=== PATIENT | female | born 1960 | race Native Hawaiian/Other Pacific Islander ===

== ENCOUNTER 2020-06-11 14:57 | Outpatient (CLI) | payer OTHER ==
[~2020-06-11 14:57] MED LIST: ALEN70TA19 PO; ALPR1TAB61 PO; HYDR-2748 PO; OXYCODONE30 MG PO; PERCOCET1 TA2 PO; SIMV20TA2 PO
[2020-06-11 15:36] LABS: PLATELET COUNT 346 K/uL (152-353)
[2020-06-11 15:37] LABS: POTASSIUM 3.4 mmol/L (3.6-5.2)
== END 2020-06-11 21:43 | disposition home or self-care (01) ==
LOC: LAB 14:57
PROVIDERS: ATTEND Nurse Practitioner Family
DX: Z00.00 Encounter for general adult medical examination without abnormal findings (principal); I10 Essential (primary) hypertension; R53.81 Other malaise; R53.83 Other fatigue; Z79.899 Other long term (current) drug therapy; E55.9 Vitamin D deficiency, unspecified
CPT/HCPCS: 80053; 80061; 82306; 83036; 84439; 84443; 85027

== ENCOUNTER 2020-06-23 09:54 | Outpatient (CLI) | payer OTHER | END 2020-06-23 21:31 | disposition home or self-care (01) | LOC: CT 09:54 | PROVIDERS: ATTEND Nurse Practitioner Family | DX: M54.6 Pain in thoracic spine (principal); M54.5 Low back pain; M54.10 Radiculopathy, site unspecified ==